=== PATIENT | male | born 1940 | race Caucasian/White ===

== ENCOUNTER → 2017-01-08 | Outpatient (CLI) | payer OTHER ==
[~2017-01-08] MED LIST: ADVIN25/60 INH; ALPR1TAB3 PO; CYAN3INJ IM; MULT-506 PO; NAPR1CAP12 PO
[2017-01-08 12:21] LABS: BASO % 0.5 %; BASO ABS # 0.03 K/uL (0-0.2); COMPLETE YES; EOS % 11.3 %; HEMATOCRIT 33.8 % (42-52); IG% 0.3 %; LYMPH % 18.4 %; LYMPH ABS # 1.12 K/uL (1.2-3.4); MEAN CELL VOLUME 89.2 fL (80-100); MEAN CORPUSCULAR HEMOGLOBIN 31.1 pg (25-34); MEAN CORPUSCULAR HGB CONC 34.9 g/dl (32-36); MEAN PLATELET VOLUME 9.7 fL (7.4-10.4); NEUT % 59.5 %; PLATELET COUNT 242 K/uL (130-400); RED BLOOD COUNT 3.79 M/uL (4.7-6.1); WHITE BLOOD COUNT 6.08 K/uL (4.8-10.8)
[2017-01-08 12:35] LABS: ALT/SGPT 23 U/L (12-78); AST/SGOT 23 U/L (15-37); BLOOD UREA NITROGEN 16 mg/dl (7-18); BUN/CREATININE RATIO 20.2 (10-20); CALCIUM 8.9 mg/dl (8.5-10.1); CARBON DIOXIDE 26 mmol/L (21-32); CHLORIDE 106 mmol/L (98-107); CREATININE 0.81 mg/dl (0.60-1.40); GLUCOSE 90 mg/dl (70-99); POTASSIUM 4.3 mmol/L (3.5-5.1); SODIUM 140 mmol/L (136-145)
[2017-01-08 12:36] LABS: ALB/GLOB RATIO 1.1 (0.9-2); ALKALINE PHOSPHATASE 65 U/L (45-117)
--- NOTE | 2017-01-10 09:19 | CODING QUERY NO DIAGNOSIS ---
TREATMENT RENDERED WITHOUT A DIAGNOSIS To promote full compliance with coding requirements relating to patient care, physician participation is requested in all cases of certified professional coder uncertainty. Please assist us with providing a diagnosis/symptom for the test(s) below: A diagnosis/symptom was not documented on your Order. A valid diagnosis/symptom is required to bill all insurances. Please remember that we are unable to code a diagnosis of rule out, probable, possible, questionable, or suspected. Tests that require a diagnosis: DOS: 01/08/17 * CEA DIAGNOSIS: * CBC DIAGNOSIS: * CMP DIAGNOSIS: * LDH DIAGNOSIS: Provider Signature: Date: Thank you Aminah Navas [facility] Information Management Once completed, please kindly fax back to [phone] For questions please call [phone]
== END | disposition home or self-care (01) ==
LOC: C.LABBFT 10:25
PROVIDERS: ATTEND Internal Medicine Hematology & Oncology
DX: C20 Malignant neoplasm of rectum (principal)

== ENCOUNTER → 2017-02-26 | Outpatient (CLI) | payer OTHER ==
[~2017-02-26] MED LIST changes: +ALPR-412 PO; +POLY335019 PO; +VITAMIN B 12 INJ INJ
[2017-02-26 13:28] LABS: THYROID STIMULATING HORMONE 5.39 uIu/ml (0.300-4.500)
== END | disposition home or self-care (01) ==
LOC: C.LABBFT 09:59
PROVIDERS: ATTEND Physician Assistant Medical
DX: E03.9 Hypothyroidism, unspecified (principal)

== ENCOUNTER → 2017-03-04 | Outpatient (CLI) | payer OTHER ==
--- NOTE | 2017-03-04 11:25 | DIAGNOSTIC IMAGING REPORT ---
LUMBAR SPINE 5 VIEWS CLINICAL HISTORY: Chronic low back pain. Peripheral neuropathy. FINDINGS: Five views of the lumbar spine are compared to study dated 01/03/2009. The skeletal structures are osteopenic. There is no radiographic evidence of fracture or malalignment. Vertebral body height and alignment are maintained throughout the lumbar spine. A chronic compression deformity of T11 is unchanged from 2009. There is minimal lumbar levocurvature centered at L3. There are anterior and lateral marginal osteophytes. The transverse and spinous processes appear intact. There is no evidence of spondylolysis. Advanced facet arthropathy is seen in the mid to lower lumbar region. There is advanced degenerative disc space narrowing at L4-L5 with associated endplate sclerosis. Moderate narrowing is seen at the remaining lumbar levels. Endplate sclerosis is also seen at L2-L3. The bony pelvis is intact as imaged. Mild sclerotic change is noted in the sacroiliac joints. There is atherosclerotic calcification of the abdominal aorta. A nonobstructed abdominal bowel gas pattern is observed. An ostomy projects over the left lower quadrant. IMPRESSION: 1. No acute bony abnormality is seen involving the lumbosacral spine. 2. Osteopenia with lumbosacral spondylosis and scoliosis as detailed above. Dictated: 03/04/2017 10:44 AM Transcribed: 03/04/2017 11:23 AM Bernarda Electronically signed by: Jorge Schultz M.D. 03/04/2017 11:28 AM Dictated Date/Time: 03/04/2017 10:44 AM
== END | disposition home or self-care (01) ==
LOC: C.RAD 09:30
PROVIDERS: ATTEND Physician Assistant Medical
DX: G62.9 Polyneuropathy, unspecified (principal)

== ENCOUNTER → 2017-04-09 | Outpatient (CLI) | payer OTHER ==
[2017-04-09 17:27] LABS: BASO % 0.6 %; BASO ABS # 0.04 K/uL (0-0.2); COMPLETE YES; EOS % 10.1 %; HEMATOCRIT 36.1 % (42-52); IG% 0.3 %; LYMPH % 14.6 %; LYMPH ABS # 0.94 K/uL (1.2-3.4); MEAN CORPUSCULAR HEMOGLOBIN 30.4 pg (25-34); MEAN CORPUSCULAR HGB CONC 32.7 g/dl (32-36); MEAN PLATELET VOLUME 9.6 fL (7.4-10.4); MONO % 6.7 %; NEUT % 67.7 %; PLATELET COUNT 245 K/uL (130-400); RED BLOOD COUNT 3.88 M/uL (4.7-6.1); WHITE BLOOD COUNT 6.42 K/uL (4.8-10.8)
[2017-04-09 17:50] LABS: ALB/GLOB RATIO 1.1 (0.9-2); ALKALINE PHOSPHATASE 59 U/L (45-117); ALT/SGPT 22 U/L (12-78); AST/SGOT 24 U/L (15-37); BLOOD UREA NITROGEN 16 mg/dl (7-18); BUN/CREATININE RATIO 19.7 (10-20); CALCIUM 8.7 mg/dl (8.5-10.1); CARBON DIOXIDE 30 mmol/L (21-32); CHLORIDE 105 mmol/L (98-107); CHOLESTEROL 198 mg/dl (0-200); CHOLESTEROL/HDL RATIO 2.7; CREATININE 0.82 mg/dl (0.60-1.40); GLUCOSE 85 mg/dl (70-99); HDL CHOLESTEROL 74 mg/dl; POTASSIUM 4.6 mmol/L (3.5-5.1); SODIUM 140 mmol/L (136-145)
[2017-04-09 17:52] LABS: LDL CHOLESTEROL CALCULATED 96 mg/dl; TRIGLYCERIDES 139 mg/dl (0-150); VERY LOW DENSITY LIPOPROT CALC 28 mg/dl
[2017-04-09 18:43] LABS: LYME DISEASE AB IGG NEG (NEG)
[2017-04-09 18:46] LABS: LYME DISEASE AB IGM EQUIVOCAL (NEG)
[2017-04-14 08:40] LABS: 18KDIGG BAND NONREACTIVE (NONREACTIVE); 23KDIGG BAND NONREACTIVE (NONREACTIVE); 23KDIGM BAND REACTIVE (NONREACTIVE); 28KDIGG BAND NONREACTIVE (NONREACTIVE); 30KDIGG BAND NONREACTIVE (NONREACTIVE); 39KDIGG BAND NONREACTIVE (NONREACTIVE); 39KDIGM BAND NONREACTIVE (NONREACTIVE); 41KDIGG BAND NONREACTIVE (NONREACTIVE); 41KDIGM BAND NONREACTIVE (NONREACTIVE); 45KDIGG BAND NONREACTIVE (NONREACTIVE); 58KDIGG BAND NONREACTIVE (NONREACTIVE); 66KDIGG BAND REACTIVE (NONREACTIVE); 93KDIGG BAND NONREACTIVE (NONREACTIVE)
== END | disposition home or self-care (01) ==
LOC: C.LABBFT 11:34
PROVIDERS: ATTEND Physician Assistant Medical
DX: E03.9 Hypothyroidism, unspecified (principal); R53.83 Other fatigue; I10 Essential (primary) hypertension

== ENCOUNTER → 2017-05-15 | Outpatient (CLI) | payer OTHER ==
[~2017-05-15] MED LIST changes: -ALPR-412 PO; -POLY335019 PO; -VITAMIN B 12 INJ INJ
[2017-05-15 17:31] LABS: THYROID STIMULATING HORMONE 2.6 uIu/ml (0.300-4.500)
== END | disposition home or self-care (01) ==
LOC: C.LABBFT 14:34
PROVIDERS: ATTEND Internal Medicine
DX: E03.9 Hypothyroidism, unspecified (principal)

== ENCOUNTER → 2017-06-30 | Outpatient (CLI) | payer OTHER ==
[~2017-06-30] MED LIST changes: +OPTIRAY 320 IV PRN
--- NOTE | 2017-06-30 15:35 | DIAGNOSTIC IMAGING REPORT ---
CHEST, ABDOMEN AND PELVIS CT WITH IV AND ORAL CONTRAST CT DOSE: 592.78 mGy.cm HISTORY: Rectal cancer. TECHNIQUE: Multiaxial CT images of the chest, abdomen and pelvis were performed following the use of intravenous and oral contrast. A dose lowering technique was utilized adhering to the principles of ALARA. COMPARISON STUDY: Chest abdomen and pelvis CT 09/01/2016. FINDINGS: No change in the bilateral calcified pleural plaques with a few scattered subcentimeter calcified and noncalcified pulmonary nodules. These nodules measure up to 4 mm. Subcentimeter mediastinal and bilateral hilar lymph nodes also remain stable. No pleural or pericardial effusions. No suspicious lytic or blastic osseous lesions. Stable old compression deformities within the thoracic spine. The liver, spleen, pancreas, kidneys, and right gland are unremarkable. Stable 1.8 cm left adrenal gland nodule. No retroperitoneal lymphadenopathy. Moderate calcified plaque within the normal caliber abdominal aorta. No pelvic lymphadenopathy. Colonic diverticulosis. Normal appendix. No bowel wall thickening or obstruction. No suspicious lytic or blastic osseous lesions. Left lower quadrant colostomy is again noted. Stable mild presacral soft tissue thickening. IMPRESSION: Overall, no significant change compared to the prior study. No evidence for metastatic disease within the chest, abdomen, or pelvis. Additional findings as described above. Electronically signed by: Rai Gamez M.D. 06/30/2017 3:33 PM Dictated Date/Time: 06/30/2017 3:20 PM
== END | disposition home or self-care (01) ==
LOC: C.CTS 14:26
PROVIDERS: ATTEND Internal Medicine Hematology & Oncology
DX: Z85.048 Personal history of other malignant neoplasm of rectum, rectosigmoid junction, and anus (principal)

== ENCOUNTER → 2017-08-27 | Outpatient (CLI) | payer OTHER ==
[~2017-08-27] MED LIST changes: -OPTIRAY 320 IV PRN
--- NOTE | 2017-08-27 10:41 | DIAGNOSTIC IMAGING REPORT ---
LUMBAR SPINE MRI HISTORY: Low back pain. TECHNIQUE: Multiplanar multisequence MRI of the lumbar spine was performed without the use of contrast. COMPARISON: Lumbar spine radiograph 225 and 9. FINDINGS: For the purpose of the report the L5-S1 disc space will be located on axial image 23 of 25. Alignment and curvature intact. No fractures within the lumbar spine. Endplate edema at L2-L3 is likely due to the long-standing degenerative change. The conus terminates at the L1 level. Old, healed mild to moderate anterior wedge-shaped compression deformity at T11. This remains unchanged. Mild disc space narrowing at L1-L2. Moderate disc space narrowing at L2-L3. Moderate to severe disc space narrowing at L3-L4. There is severe disc space narrowing at L4-L5. Small endplate osteophytes seen throughout the lumbar spine. This seen on the sagittal STIR sequences there is abnormal linear hyperintense signal within the bilateral sacral wings consistent with insufficiency fractures. There is associated presacral edema due to the insufficient fractures. These are not significantly displaced. Near diffuse atrophy of the erector spinae muscles. Visualized retroperitoneal soft tissues are unremarkable. L1-L2: Small broad-based posterior disc bulge without significant central canal or neural foraminal narrowing. L2-L3: Small broad-based posterior disc bulge with ligamentum and facet hypertrophy resulting in moderate central canal and mild bilateral neural foraminal narrowing. L3-L4: No significant central canal narrowing. Mild bilateral neural foraminal narrowing, right greater than left. This is due to the small disc bulge asymmetric to the right. L4-L5: Mild central canal narrowing due to the tiny disc bulge and facet hypertrophy. There is also mild bilateral neural foraminal narrowing. L5-S1: No significant central canal or neural foraminal narrowing. IMPRESSION: 1. Bilateral sacral sufficiency fractures which appear acute to subacute. 2. No acute fractures identified within the lumbar spine. 3. Old, healed T11 wedge-shaped compression deformity. No associated retropulsion. 4. Multilevel lumbar spondylosis as described above most pronounced at the L2-L3 level which demonstrates moderate central canal narrowing. Electronically signed by: Rai Gamez M.D. 08/27/2017 10:40 AM Dictated Date/Time: 08/27/2017 10:30 AM
== END | disposition home or self-care (01) ==
LOC: C.MRI 09:26
PROVIDERS: ATTEND Orthopaedic Surgery Orthopaedic Surgery of the Spine
DX: M48.061 Spinal stenosis, lumbar region without neurogenic claudication (principal); M47.816 Spondylosis without myelopathy or radiculopathy, lumbar region; S32.10XA Unspecified fracture of sacrum, initial encounter for closed fracture; X58.XXXA Exposure to other specified factors, initial encounter

== ENCOUNTER 2017-10-26 10:37 | Observation (INO) | payer OTHER ==
[2017-09-24 08:56] VITALS: BMI 24.0
--- NOTE | 2017-09-24 09:41 | PAT Medication Instructions ---
Service Date Sep 24, 2017. Current Home Medication List Alprazolam (Alprazolam), 1 TAB PO HS PRN for Sleep Fluticasone Prop/Salmeterol (Advair Diskus 250/50 60 Dose), 1 PUFF INH QAM Multivitamin (Multivitamin), 1 TAB PO QAM Naproxen Sodium (Aleve), 1 CAP PO DAILY PRN for Pain Polyethylene Glycol 3350 (Miralax), 17 GM PO PRN [Vitamin B 12 Inj], 1 DOSE INJ [id number] Medication Instructions For Your Scheduled Surgery - Check with surgeon for instructions: Naproxen Sodium (Aleve), 1 CAP PO DAILY PRN for Pain - Continue as directed: [Vitamin B 12 Inj], 1 DOSE INJ [id number] - Hold the following medications the morning of surgery: Polyethylene Glycol 3350 (Miralax), 17 GM PO PRN Multivitamin (Multivitamin), 1 TAB PO QAM - Take the following medications the morning of surgery with a sip of water: Alprazolam (Alprazolam), 1 TAB PO HS PRN for Sleep (if needed) Fluticasone Prop/Salmeterol (Advair Diskus 250/50 60 Dose), 1 PUFF INH QAM - Take the following medications as scheduled the night before surgery: Alprazolam (Alprazolam), 1 TAB PO HS PRN for Sleep (if needed) Fluticasone Prop/Salmeterol (Advair Diskus 250/50 60 Dose), 1 PUFF INH QAM Multivitamin (Multivitamin), 1 TAB PO QAM Polyethylene Glycol 3350 (Miralax), 17 GM PO PRN(if needed) If you have any questions please call us at [phone] or [phone] or [phone]
[2017-09-24 10:37] LABS: BASO % 0.6 %; BASO ABS # 0.04 K/uL (0-0.2); EOS % 11.8 %; EOS ABS # 0.76 K/uL (0-0.5); HEMATOCRIT 38.2 % (42-52); HEMOGLOBIN 12.9 g/dL (14.0-18.0); IG# 0.02 K/uL (0.00-0.02); LYMPH % 16.5 %; LYMPH ABS # 1.06 K/uL (1.2-3.4); MEAN CELL VOLUME 92.3 fL (80-100); MEAN CORPUSCULAR HEMOGLOBIN 31.2 pg (25-34); MEAN CORPUSCULAR HGB CONC 33.8 g/dl (32-36); MEAN PLATELET VOLUME 9.4 fL (7.4-10.4); MONO % 9.8 %; MONO ABS # 0.63 K/uL (0.11-0.59); NEUT ABS # 3.93 K/uL (1.4-6.5); PLATELET COUNT 222 K/uL (130-400); RED CELL DISTRIBUTION WIDTH CV 13.9 % (11.5-14.5); WHITE BLOOD COUNT 6.44 K/uL (4.8-10.8)
[2017-09-24 10:43] LABS: CALCIUM 8.8 mg/dl (8.5-10.1); CREATININE 0.93 mg/dl (0.60-1.40); POTASSIUM 4.3 mmol/L (3.5-5.1)
[2017-09-24 10:50] LABS: INR 0.9 (0.9-1.1); PTT PATIENT 27.2 SECONDS (21.0-31.0)
--- NOTE | 2017-10-25 11:09 | HISTORY & PHYSICAL EXAMINATION ---
DATE OF ADMISSION: 10/26/2017 Preop for laminectomy, L2-L3, L3-L4, and L4-L5 lumbar spine. Symptoms include back pain, lower extremity difficulty, paresthesias, walking intolerance with significant imaging. Bill is delightful. I have known him for several months. He is set up for an elective surgery at [facility] on the , laminectomy of the various levels listed. PAST MEDICAL HISTORY: Negative for heart disease, congenital heart disorder. Positive stress test. Positive for asthma, numbness and tingling. Negative for diabetes. Negative for thyroid. Negative for bleeding disorder. Negative for kidney and liver disease. Does have a history of skin, face, back and rectal carcinoma, has had chemotherapy, has had radiation, does have some nausea. PAST SURGICAL HISTORY: Include skin cancer surgery and a colostomy. MEDICATIONS: Include Advair, vitamin B12, multivitamin, thyroid medication and MiraLax. REVIEW OF SYSTEMS: Denies blurred vision, double vision, tinnitus, vertigo. Denies chest pain, palpitations. Denies asthma, wheezing, shortness of breath. No nausea and vomiting. Does have a colostomy. PHYSICAL EXAMINATION: GENERAL: He is alert and oriented. He is 5 feet 8 inches, 160 pounds. He is in no terrible distress, sitting. He has difficulty with ambulation. VITAL SIGNS: Blood pressure 130/80, pulse of 80, respiratory rate 16, temperature 97.4. CARDIAC: Normal S1, S2, no S3. LUNGS: Clear to auscultation. No wheezing or rhonchi. EXTREMITIES: Major problems lower extremity difficulty with neurogenic claudication. IMAGES: Reviewed. IMPRESSION: Spinal stenosis, L2-L5. DISPOSITION: Laminectomy, L2-L3, L3-L4, L4-L5.
[2017-10-26] VITALS (8 sets, daily range): BP systolic 122–155; BP diastolic 65–87; PULSE 64–89; TEMP 36.4–36.7; O2SAT 94–99; Ht 172.7 cm; Wt 73.5 kg
[~2017-10-26] VITALS: Ht 172.7 cm; Wt 73.5 kg
[~2017-10-26 10:37] MED LIST changes: +ALPR-412 PO; -ALPR1TAB3 PO; +CEFAZOLIN 2000MG IV PUSH 10 ML IV SCH; -CYAN3INJ IM; +LACTATED RINGER'S 1000ML 1,000 ML IV SCH; +NSS 1000ML IV SCH; +POLY335019 PO; +VITAMIN B 12 INJ INJ
[2017-10-26] MEDS ORDERED: THROMBIN FOR SOLN 20000 UNIT KIT ONE (13:20)
[2017-10-26] MEDS ORDERED: GELATIN SPONGE SZ 100 ONE ×2 (13:20→14:55)
[2017-10-26] MEDS ORDERED: VANCOMYCIN HCL 1000MG/20ML VIAL ONE (13:21)
[2017-10-26] MEDS ORDERED: MIDAZOLAM HCL 1 MG/ML 2ML VIAL ONE (13:21)
[2017-10-26] MEDS ORDERED: FENTANYL CITRATE INJ 50 MCG/1 ML 2 ML VIAL ONE ×2 (13:21→15:19)
[2017-10-26] MEDS ORDERED: BACITRACIN 50000 UNIT VIAL ONE (13:21)
[2017-10-26] MEDS ORDERED: BUPIVACAINE/EPINEPHRINE 0.5% MPF 1:200,000 30 ML VIAL ONE (13:21)
--- NOTE | 2017-10-26 13:23 | History & Physical Bridge Note ---
H&P Re-Evaluation Bridge Note: I have examined the patient, reviewed the History & Physical and in the interval since the performance of the History & Physical I have noted the following changes of clinical significance: No changes noted PROCEDURE; LAMINECTOMY L2-3, L3-4, L4-5
[2017-10-26] MEDS ORDERED: PHENYLEPHRINE HCL INJ 10 MG/ML VIAL ONE (13:25)
[2017-10-26] MEDS ORDERED: THROMBIN FOR SOLN 20000 UNIT KIT TOP ONE (15:19)
[2017-10-26] MEDS ORDERED: LORAZEPAM INJ 1 MG in SYRINGE 0 ML IV PRN (15:30)
[2017-10-26] MEDS ORDERED: NON-FORMULARY MEDICATION (Polyethylene Glycol 3350 (Miralax) 17 GM) PO SCH (15:30)
[2017-10-26] MEDS ORDERED: ACETAMINOPHEN 325 MG TAB PO PRN (15:30)
[2017-10-26] MEDS ORDERED: HYDROmorphone INJ 2 MG/ML SYR/VIAL IV PRN (15:30)
[2017-10-26] MEDS ORDERED: METOCLOPRAMIDE HCL INJ 5 MG/ML 2 ML VIAL IV PRN (15:30)
[2017-10-26] MEDS ORDERED: ONDANSETRON INJ 2 MG/ML 2 ML VIAL IV PRN ×2 (15:30→15:45)
[2017-10-26] MEDS ORDERED: PROMETHAZINE HCL INJ 12.5 MG in SODIUM CHLORIDE 0.9% 50ML 50 ML IV PRN ×2 (15:30→15:45)
[2017-10-26] MEDS ORDERED: HYDROmorphone INJ 1 MG/ML SYR IV PRN ×2 (15:30→15:45)
[2017-10-26] MEDS ORDERED: VITAMIN B INJ SCH (15:30)
[2017-10-26] MEDS ORDERED: LORAZEPAM 1 MG TAB PO PRN (15:30)
[2017-10-26] MEDS ORDERED: ALPRAZOLAM 0.25 MG TAB PO PRN (15:30)
[2017-10-26] MEDS ORDERED: OXYCODONE/ACETAMINOPHEN 5-325 TAB PO PRN ×2 (15:30)
--- NOTE | 2017-10-26 15:31 | [facility] Post Operative Brief Note ---
Immediate Operative Summary Operative Date Oct 26, 2017. Pre-Operative Diagnosis Spinal Stenosis L2-L5 Post-Operative Diagnosis Spinal Stenosis L2-L5 Procedure(s) Performed L2-L3, L3-L4, L4-L5 Laminectomy Surgeon Dr. Mujica [employer]ater Surgeon(s) Jose Oliveros PA-C Estimated Blood Loss 300CC Findings severe stenosis Specimens none per surgeon Complication(s) None Disposition Recovery Room / PACU
[2017-10-26] MEDS ORDERED: ONDANSETRON INJ 2 MG/ML 2 ML VIAL ONE (15:45)
[2017-10-26] MEDS ORDERED: ROCURONIUM BROMIDE 10 MG/ML 5 ML VIAL IV ONE (15:45)
[2017-10-26] MEDS ORDERED: FLUMAZENIL 0.1 MG/1 ML 10 ML VIAL IV PRN (15:45)
[2017-10-26] MEDS ORDERED: ATROPINE SULFATE 0.1 MG/ML 5ML SYR IV PRN (15:45)
[2017-10-26] MEDS ORDERED: GLYCOPYRROLATE INJ 0.2 MG/ML VIAL ONE (15:45)
[2017-10-26] MEDS ORDERED: NEOSTIGMINE METHYLSULFATE 5 MG/5 ML SYR ONE (15:45)
[2017-10-26] MEDS ORDERED: DEXAMETHASONE SOD INJ 4 MG/ML VIAL ONE (15:45)
[2017-10-26] MEDS ORDERED: PROPOFOL IV EMULSION 10 MG/ML 20 ML VIAL IV ONE (15:45)
[2017-10-26] MEDS ORDERED: LIDOCAINE HCL 2% 2 ML VIAL (20MG/ML) ONE (15:45)
[2017-10-26] MEDS ORDERED: NALOXONE HCL 0.4 MG/1 ML VIAL/CARP IV PRN (15:45)
[2017-10-26] MEDS ORDERED: LABETALOL HCL IV 5 MG/ML 20ML IV PRN (15:45)
--- NOTE | 2017-10-26 15:49 | DIAGNOSTIC IMAGING REPORT ---
INTRAOPERATIVE LUMBAR SPINE SINGLE VIEW CLINICAL HISTORY: L2-L3 L3-L4 L4-L5 LAMINECTOMY COMPARISON STUDY: Lumbar spine performed 03/04/2017 FINDINGS: A single lateral fluoroscopic spot images provided for interpretation. 2 seconds of fluoroscopic time was utilized. There are posterior skin retractors. There are metallic probes present at the level posterior elements at the L5-S1 level, and L2-3 level. IMPRESSION: Intraoperative fluoroscopic spot image for localization purposes. Electronically signed by: Benson Chavarria M.D. 10/26/2017 3:48 PM Dictated Date/Time: 10/26/2017 3:47 PM
[2017-10-26] MEDS ORDERED: IV FLUIDS COMPLETED PRN (16:00)
--- NOTE | 2017-10-26 16:29 | Anesthesiology Progress Note ---
Anesthesia Post Op Note Date & Time Oct 26, 2017 at 16:29 Vital Signs Pain Intensity: 2 Vital Signs Past 12 Hours Date Time Temp Pulse Resp B/P (MAP) Pulse Ox O2 Delivery O2 Flow Rate FiO2 10/26/17 16:21 124/63 10/26/17 16:18 68 15 97 10/26/17 16:18 67 15 10/26/17 16:16 131/65 10/26/17 16:13 74 12 10/26/17 16:13 72 12 97 10/26/17 16:11 148/74 10/26/17 16:08 84 14 97 10/26/17 16:08 84 14 10/26/17 16:06 144/73 10/26/17 16:05 36.3 83 16 144/73 (115) 97 Nasal Cannula 2 10/26/17 16:03 80 14 10/26/17 16:03 81 14 98 10/26/17 16:01 161/81 10/26/17 15:58 85 16 10/26/17 15:58 85 16 98 10/26/17 15:57 87 16 97 10/26/17 15:57 87 16 10/26/17 15:56 156/90 10/26/17 15:52 85 13 10/26/17 15:52 85 13 99 10/26/17 15:51 160/71 10/26/17 15:47 86 19 99 10/26/17 15:47 86 19 10/26/17 15:46 156/78 10/26/17 15:42 89 18 100 10/26/17 15:42 89 18 10/26/17 15:41 141/69 10/26/17 15:38 149/72 10/26/17 15:37 36.7 87 12 149/72 (104) 99 Oxymask 10 10/26/17 15:37 89 9 10/26/17 15:37 88 9 99 10/26/17 11:12 36.7 76 20 143/76 (98) 94 Room Air Notes Mental Status: alert / awake / arousable, participated in evaluation Pt Amnestic to Procedure: Yes Nausea / Vomiting: adequately controlled Pain: adequately controlled Airway Patency, RR, SpO2: stable & adequate BP & HR: stable & adequate Hydration State: stable & adequate Anesthetic Complications: no major complications apparent
[2017-10-26] MEDS ORDERED: SODIUM CHLORIDE 0.9% 1000ML 1,000 ML IV SCH (17:00)
[2017-10-26 17:06] LABS: HEMATOCRIT 30.4 % (42-52); HEMOGLOBIN 10.7 g/dL (14.0-18.0)
--- NOTE | 2017-10-26 18:03 | OPERATIVE REPORT ---
DATE OF OPERATION: 10/26/2017 PREOPERATIVE DIAGNOSIS: Severe stenosis, L2 through L5, lumbar spine. POSTOPERATIVE DIAGNOSIS: Same. PROCEDURE: Laminectomy, foraminotomy, partial facetectomy, L2 through L5. ESTIMATED BLOOD LOSS: 200 mL. COMPLICATIONS: Zero. SURGEON: Dr. Muijca. BENDING ROLL OPERATOR: Jose Oliveros PA-C. ANESTHETIC: General. DESCRIPTION OF PROCEDURE: The patient was taken to the operating room and general intubated, anesthesia provided to the patient, placed prone, prepped and draped sterile. We made a skin incision, fascial incision, put in a deep self-retaining retractor, meticulously decompressed lamina of L5, L4, L3, L2; foraminotomies, partial facetectomy, a lot decompression with ligamentum flavum hypertrophy. We probed and visualized each and every nerve root, they were free of obstruction. We irrigated and closed over vancomycin powder and Hemovac drain with 1 Vicryl suture, 2-0 on the subcuticular layer, staple gun on the skin. Sterile dressing applied. The patient returned to PACU stable. Again, no apparent complications. Sponge and needle count correct at the close. I attest to the content of the Intraoperative Record and any orders documented therein. Any exception s are noted below.
--- NOTE | 2017-10-26 19:12 | Medical Consult ---
Consultation Date of Consultation: Oct 26, 2017. Attending Physician: Nael Mujica DO Reason for Consultation: medical management History of Present Illness 77 y/o M who was admitted earlier today s/p spine surgery with Dr. Mujica. Pt is doing well. No back pain at present. He has not eaten yet, but no n/v post op. Denies chest pain or SOB. Pt denies fever, abd pain, c/d, LE pain or swelling. Past Medical/Surgical History Asthma Hypothyroid--not taking medications Family History Noncontributory due to age Denies hx of CT Social History Smoking Status: Former Smoker Alcohol Use: none Drug Use: none Marital Status: Housing Status: lives with family Allergies Coded Allergies: Brompheniramine (Verified Allergy, Unknown, UNKNOWN REACTION, 10/26/17) PER PCP RECORDS Hydrochlorothiazide w/Triamterene (Verified Allergy, Unknown, UNKNOWN REACTION, 10/26/17) PER PCP RECORDS Lisinopril (Verified Allergy, Unknown, UNKNOWN REACTION, 10/26/17) PER PCP RECORDS Olmesartan (Verified Allergy, Unknown, UNKNOWN REACTION, 10/26/17) PER PCP RECORDS Pseudoephedrine (Verified Allergy, Unknown, UNKNOWN REACTION, 10/26/17) PER PCP RECORDS Telmisartan (Verified Allergy, Unknown, UNKNOWN REACTION, 10/26/17) PER PCP RECORDS Current Inpatient Medications Current Inpatient Medications Medications (Trade) Dose Ordered Sig/Mariely Route Start Time Stop Time Status Last Admin Dose Admin Acetaminophen (Tylenol Tab) 650 mg Q6H PRN PO 10/26/17 15:30 11/25/17 15:29 Hydromorphone HCl (Dilaudid Inj) 1 mg Q3H PRN IV 10/26/17 15:30 11/09/17 15:29 Hydromorphone HCl (Dilaudid Inj) 1.5 mg Q3H PRN IV 10/26/17 15:30 11/09/17 15:29 Promethazine HCl 12.5 mg/Sodium Chloride 50.5 ml @ 202 mls/hr Q6H PRN IV 10/26/17 15:30 11/25/17 15:29 Ondansetron HCl (Zofran Inj) 4 mg Q6H PRN IV 10/26/17 15:30 11/25/17 15:29 Metoclopramide HCl (Reglan Inj) 10 mg Q6H PRN IV 10/26/17 15:30 11/25/17 15:29 Lorazepam (Ativan Tab) 1 mg Q6H PRN PO 10/26/17 15:30 11/25/17 15:29 Lorazepam 1 mg/ Syringe 0.5 ml @ 1 mls/min Q6H PRN IV 10/26/17 15:30 11/25/17 15:29 Polyethylene (Miralax Powder Packet) 17 gm DAILY PO 10/27/17 09:00 11/26/17 08:59 Bisacodyl (Dulcolax Tab) 5 mg DAILY PRN PO 10/27/17 06:00 11/26/17 05:59 Diphenhydramine HCl (Benadryl Cap) 25 mg Q6H PRN PO 10/26/17 15:30 11/25/17 15:29 Oxycodone/ Acetaminophen (Percocet 5-325mg Tab) 1 tab Q4H PRN PO 10/26/17 15:30 11/09/17 15:29 Oxycodone/ Acetaminophen (Percocet 5-325mg Tab) 2 tab Q4H PRN PO 10/26/17 15:30 11/09/17 15:29 Dexamethasone Sodium Phosphate 10 mg/Syringe 2.5 ml @ 1 mls/min Q8H IV 10/26/17 22:00 10/28/17 06:03 Sodium Chloride 1,000 ml @ 80 mls/hr [id number] IV 10/26/17 17:00 11/25/17 16:59 Alprazolam (Xanax Tab) 0.25 mg HS PRN PO 10/26/17 15:30 11/25/17 15:29 Salmeterol Xinafoate/ Fluticasone (Advair Diskus 250/50 Inh) 1 puff QAM INH 10/27/17 09:00 11/26/17 08:59 Multivitamins (Multivitamin Tab) 1 tab QAM PO 10/27/17 09:00 11/26/17 08:59 Hydromorphone HCl (Dilaudid Inj) 0.25 mg Q5M PRN IV 10/26/17 15:45 10/26/17 20:45 Naloxone HCl (Narcan Inj) 0.2 mg Q2M PRN IV 10/26/17 15:45 10/26/17 20:45 Flumazenil (Romazicon Inj) 0.2 mg Q2M PRN IV 10/26/17 15:45 10/26/17 20:45 Ondansetron HCl (Zofran Inj) 4 mg ONE PRN IV 10/26/17 15:45 10/26/17 20:45 Promethazine HCl 12.5 mg/Sodium Chloride 50.5 ml @ 202 mls/hr ONE PRN IV 10/26/17 15:45 10/26/17 20:45 Labetalol HCl (Normodyne IV) 5 mg Q5M PRN IV 10/26/17 15:45 10/26/17 20:45 Atropine Sulfate (Atropine Sulfate 0.1MG/Ml Inj) 0.5 mg Q1M PRN IV 10/26/17 15:45 10/26/17 20:45 Miscellaneous (Iv Fluids Completed) 1 ea PRN PRN N/A 10/26/17 16:00 10/26/18 15:59 Review of Systems Pertinent positives and negatives reviewed in HPI--all others negative Physical Exam Date Time Temp Pulse Resp B/P (MAP) Pulse Ox O2 Delivery O2 Flow Rate FiO2 10/26/17 18:32 82 16 147/80 (102) 98 Nasal Cannula 2.0 10/26/17 17:30 89 16 155/87 (109) 97 Nasal Cannula 2.0 10/26/17 16:30 96 Nasal Cannula 2.0 10/26/17 16:30 96 Nasal Cannula 2.0 10/26/17 16:21 124/63 10/26/17 16:18 68 15 97 10/26/17 16:18 67 15 10/26/17 16:16 131/65 10/26/17 16:13 74 12 10/26/17 16:13 72 12 97 10/26/17 16:11 148/74 10/26/17 16:08 84 14 97 10/26/17 16:08 84 14 10/26/17 16:06 144/73 10/26/17 16:05 36.3 83 16 144/73 (115) 97 Nasal Cannula 2 10/26/17 16:03 80 14 10/26/17 16:03 81 14 98 10/26/17 16:01 161/81 10/26/17 15:58 85 16 10/26/17 15:58 85 16 98 10/26/17 15:57 87 16 97 10/26/17 15:57 87 16 10/26/17 15:56 156/90 10/26/17 15:52 85 13 10/26/17 15:52 85 13 99 10/26/17 15:51 160/71 10/26/17 15:47 86 19 99 10/26/17 15:47 86 19 10/26/17 15:46 156/78 10/26/17 15:42 89 18 100 10/26/17 15:42 89 18 10/26/17 15:41 141/69 10/26/17 15:38 149/72 10/26/17 15:37 36.7 87 12 149/72 (104) 99 Oxymask 10 10/26/17 15:37 89 9 10/26/17 15:37 88 9 99 10/26/17 11:12 36.7 76 20 143/76 (98) 94 Room Air General Appearance: WD/WN, no apparent distress Head: normocephalic, atraumatic Eyes: normal inspection, EOMI, sclerae normal Respiratory/Chest: normal breath sounds, no respiratory distress Cardiovascular: regular rate, rhythm, no edema Abdomen/GI: non tender, soft Extremities/Musculoskelatal: no calf tenderness, no pedal edema Neurologic/Psych: alert, normal mood/affect, oriented x 3 Skin: normal color, warm/dry Laboratory Results Last 24 Hours Test 10/26/17 16:52 Hemoglobin 10.7 g/dL Hematocrit 30.4 % Assessment & Plan 77 y/o M who was admitted on 10/26 s/p spine surgery with Dr. Mujica. Spine surgery: as per ortho Asthma: stable Hypothyroid: pt reports that he did not feel any different on medication and his PCP told him he could stop taking it TSH 2.6 05/2017, repeat pending
[2017-10-26] MEDS: DEXAMETHASONE INJ 10 MG in SYRINGE 0 ML IV SCH (21:47)
[2017-10-27 03:35] VITALS: BP 131/70; PULSE 90; TEMP 36.9; O2SAT 94
[2017-10-27] MEDS ORDERED: NURSING DECISION MEDICATION ORDER SCH (05:15)
[2017-10-27] MEDS: DEXAMETHASONE INJ 10 MG in SYRINGE 0 ML IV SCH ×3 (05:45→22:19)
[2017-10-27] MEDS ORDERED: BISACODYL 5 MG TABEC PO PRN (06:00)
[2017-10-27 07:05] VITALS: BP 127/63; PULSE 89; TEMP 36.6; O2SAT 93
[2017-10-27 07:29] VITALS: BP 125/63; PULSE 74; O2SAT 95
--- NOTE | 2017-10-27 07:39 | Anesthesiology Progress Note ---
Anesthesia Post Op Note Date & Time Oct 27, 2017 at 07:39 Vital Signs Pain Intensity: 1.0 Vital Signs Past 12 Hours Date Time Temp Pulse Resp B/P (MAP) Pulse Ox O2 Delivery O2 Flow Rate FiO2 10/27/17 07:29 74 16 125/63 (83) 95 Nasal Cannula 2.0 10/27/17 07:05 36.6 89 16 127/63 (84) 93 Room Air 10/27/17 03:35 36.9 90 16 131/70 (90) 94 Room Air 10/26/17 23:21 96 Room Air 10/26/17 23:20 Nasal Cannula 2.0 10/26/17 23:00 36.5 86 16 124/65 (84) 99 Nasal Cannula 2.0 10/26/17 20:10 64 122/65 (84) Notes Mental Status: alert / awake / arousable, participated in evaluation Pt Amnestic to Procedure: Yes Nausea / Vomiting: adequately controlled Pain: adequately controlled Airway Patency, RR, SpO2: stable & adequate BP & HR: stable & adequate Hydration State: stable & adequate Anesthetic Complications: no major complications apparent
--- NOTE | 2017-10-27 07:57 | ORTHOPEDICS PROGRESS NOTE ---
DATE: 10/27/2017 SUBJECTIVE: Now 12 hours from fairly rigorous spinal surgery. He is alert, oriented but lightheaded this morning. Out of bed to the bathroom. He is conversant. No chest pain, shortness of breath, calf tenderness. OBJECTIVE: Vital signs were stable, blood pressure appropriate, 30.4 hematocrit this morning. ASSESSMENT: Delightful gentleman with some lightheadedness this morning, probably down on his fluids, possibly anemic as well causing an assortment of issues. DISPOSITION: Will put him back to bedrest this morning. Restart his IV fluids and check his laboratory values. He does have a hospitalist onboard.
[2017-10-27] MEDS: LACTATED RINGER'S 1000ML 1,000 ML IV SCH ×2 (08:02→18:06)
[2017-10-27] MEDS: MULTIVITAMIN TAB PO SCH (08:03)
[2017-10-27] MEDS: FLUTICASONE/SALMETEROL 250/50 (ADVAIR) 14 PUFF/1 INHALER INH SCH (08:03)
[2017-10-27] MEDS: POLYETHYLENE (MIRALAX) 17 GM PACK PO SCH (08:03)
[2017-10-27 08:16] LABS: HEMATOCRIT 29.4 % (42-52); HEMOGLOBIN 10.1 g/dL (14.0-18.0); MEAN CELL VOLUME 91.3 fL (80-100); MEAN CORPUSCULAR HEMOGLOBIN 31.4 pg (25-34); MEAN CORPUSCULAR HGB CONC 34.4 g/dl (32-36); MEAN PLATELET VOLUME 9.3 fL (7.4-10.4); PLATELET COUNT 191 K/uL (130-400); RED CELL DISTRIBUTION WIDTH CV 13.9 % (11.5-14.5); RED CELL DISTRIBUTION WIDTH SD 46.7 fL (36.4-46.3); WHITE BLOOD COUNT 9.68 K/uL (4.8-10.8)
[2017-10-27 11:41] VITALS: BP 138/66; PULSE 84; TEMP 36.5; O2SAT 97
[2017-10-27 15:35] VITALS: BP 132/62; PULSE 72; TEMP 36.4; O2SAT 94
--- NOTE | 2017-10-27 15:38 | Progress Note ---
Subjective Date of Service: Oct 27, 2017. Objective Vital Signs Date Time Temp Pulse Resp B/P (MAP) Pulse Ox O2 Delivery O2 Flow Rate FiO2 10/27/17 11:41 36.5 84 16 138/66 (90) 97 Room Air 10/27/17 07:53 Nasal Cannula 2.0 10/27/17 07:29 74 16 125/63 (83) 95 Nasal Cannula 2.0 10/27/17 07:05 36.6 89 16 127/63 (84) 93 Room Air 10/27/17 03:35 36.9 90 16 131/70 (90) 94 Room Air 10/26/17 23:21 96 Room Air 10/26/17 23:20 Nasal Cannula 2.0 10/26/17 23:00 36.5 86 16 124/65 (84) 99 Nasal Cannula 2.0 10/26/17 20:10 64 122/65 (84) 10/26/17 19:33 36.4 85 16 151/80 (103) 98 Nasal Cannula 2.0 10/26/17 18:32 82 16 147/80 (102) 98 Nasal Cannula 2.0 10/26/17 17:30 89 16 155/87 (109) 97 Nasal Cannula 2.0 10/26/17 16:30 96 Nasal Cannula 2.0 10/26/17 16:30 96 Nasal Cannula 2.0 10/26/17 16:21 124/63 10/26/17 16:18 68 15 97 10/26/17 16:18 67 15 10/26/17 16:16 131/65 10/26/17 16:13 74 12 10/26/17 16:13 72 12 97 10/26/17 16:11 148/74 10/26/17 16:08 84 14 97 10/26/17 16:08 84 14 10/26/17 16:06 144/73 10/26/17 16:05 36.3 83 16 144/73 (115) 97 Nasal Cannula 2 10/26/17 16:03 80 14 10/26/17 16:03 81 14 98 10/26/17 16:01 161/81 10/26/17 15:58 85 16 10/26/17 15:58 85 16 98 10/26/17 15:57 87 16 97 10/26/17 15:57 87 16 10/26/17 15:56 156/90 10/26/17 15:52 85 13 10/26/17 15:52 85 13 99 10/26/17 15:51 160/71 10/26/17 15:47 86 19 99 10/26/17 15:47 86 19 10/26/17 15:46 156/78 10/26/17 15:42 89 18 100 10/26/17 15:42 89 18 10/26/17 15:41 141/69 10/26/17 15:38 149/72 10/26/17 15:37 36.7 87 12 149/72 (104) 99 Oxymask 10 10/26/17 15:37 89 9 10/26/17 15:37 88 9 99 Laboratory Results Last 24 Hours Test 10/26/17 16:52 10/27/17 07:41 Hemoglobin 10.7 g/dL 10.1 g/dL Hematocrit 30.4 % 29.4 % White Blood Count 9.68 K/uL Red Blood Count 3.22 M/uL Mean Corpuscular Volume 91.3 fL Mean Corpuscular Hemoglobin 31.4 pg Mean Corpuscular Hemoglobin Concent 34.4 g/dl RDW Standard Deviation 46.7 fL RDW Coefficient of Variation 13.9 % Platelet Count 191 K/uL Mean Platelet Volume 9.3 fL Thyroid Stimulating Hormone (TSH) 2.300 uIu/ml Assessment and Plan 77 y/o M who was admitted on 10/26 s/p spine surgery with Dr. Mujica. S/P L2-5 laminectomy, foraminotomy Hemodynamically stable Dizziness resolved with IVF No distress reported Dispo, DVT ppx per primary team Asthma: stable, cont advair, IS Hypothyroid: pt reports that he did not feel any different on medication and his PCP told him he could stop taking it TSH 2.3 Pt is FULL CODE
[2017-10-27 22:49] VITALS: BP 133/68; PULSE 82; TEMP 37.1; O2SAT 93
[2017-10-28] MEDS: LACTATED RINGER'S 1000ML 1,000 ML IV SCH (04:03)
[2017-10-28] MEDS: DEXAMETHASONE INJ 10 MG in SYRINGE 0 ML IV SCH (05:30)
[2017-10-28 06:23] VITALS: BP 143/74; PULSE 80; TEMP 37.1; O2SAT 93
[2017-10-28] MEDS: FLUTICASONE/SALMETEROL 250/50 (ADVAIR) 14 PUFF/1 INHALER INH SCH (07:43)
[2017-10-28] MEDS: MULTIVITAMIN TAB PO SCH (07:44)
[2017-10-28] MEDS: POLYETHYLENE (MIRALAX) 17 GM PACK PO SCH (07:44)
[2017-10-28] MEDS ORDERED: HYDR-5688 PO (07:50)
--- NOTE | 2017-10-28 07:52 | Discharge Instructions ---
Discharge Instructions Date of Service Oct 28, 2017. Admission Reason for Admission: Lumbar Spinal Stenosis Discharge Discharge Diagnosis / Problem: same Discharge Goals Goal(s): Improve function Activity Recommendations Activity Limitations: as noted below Lifting Limitations: until after follow-up appointment Exercise/Sports Limitations: until after follow-up appointment . Instructions / Follow-Up Instructions / Follow-Up MEDICATIONS: Please take your prescriptions as instructed at your pre-op appointment. SPECIAL CARE: The following information is intended to answer some of the common questions and concerns regarding your surgery. Each patient is an individual and receives individual counselling throughout the course of treatment, from diagnosis to surgery all the way through recovery. What follows is not an exhaustive list, but should be a useful guide to some of the common questions and concerns patients have regarding their surgeries. These are not provided to keep you from calling us; rather, they give you something accurate and concrete to reference as you recover from your procedure. If you need us, we are available to you. As always, if you are not sure about something, call us at [phone]. MEDICAL EMERGENCIES: For these conditions, call 911 or go to your local hospital-based Emergency Department - not [facility] or equivalent. * Paralysis * Severe chest pain or difficulty breathing * Swelling or redness of either leg Spine procedures can be rather complex and though complications are rare, they do occur. In such cases, effective advice regarding emergency situations cannot always be addressed over the telephone. You may be referred to the emergency department for more effective management of your problem. Activity Limitations: It is important to give your body time to heal, so please limit your activities : * In general, don't do anything that moves your spine too much. You should avoid contact sports, twisting or heavy lifting while you recover. * 5-10 pounds is all you should attempt to lift. * You should not plan on driving for approximately 3 weeks and you should avoid traveling more than 30-45 minutes at a time. Longer trips should be broken down with walking breaks spaced appropriately. * Physical therapy is not usually required. * Walking and good posture practices will help you recover and regain your function. * Avoid straining or sudden changes in position. * In general, the goal is to take it easy and recover. Don't cause any new problems. Just relax. Showers: * Do not take a bath, use a Jacuzzi or hot tub or otherwise submerge your incision. * It is usually safe to take a shower 4-5 days after your surgery. * Your incision does not require any special creams or ointments. * Simply clean it with soap and water, dry and re-dress with a clean bandage afterwards. Incision: * Keep incision clean, dry and protected until your first follow-up appointment. * Some amount of drainage and redness is normal. Any drainage should be fairly clear and not have a foul odor. * If you feel anything is wrong or you have excessive drainage, please call us. * Your stitches and christiano will be removed 10-14 days after your surgery. At the time of your first post-op visit. * Neck surgeries are typically closed with a suture underneath the skin. The steri-strips over the incision should be maintained until we see you in the office. Bracing: * You may be provided with a back or neck brace to encourage good posture and prevent injury. It will remind you not to do too much as you heal and will alert others to the fact that you have had a surgery. * Back braces may be removed for showers and when you are resting at home. They must be worn when you are walking around for any period of time or for travel. * For neck surgery, you will likely be provided with two cervical collars. The soft collar ([place] or foam rubber) is worn most commonly throughout the day and while sleeping. The plastic collar (provided at the hospital) is for showering/bathing. * Except while eating, collars should remain in place. More specifically, bracing is provided for a purpose and should be worn. * Please obtain your brace or collars prior to your operation and bring them to the hospital with you on the day of surgery. * You should also bring your collars to your post-op appointment with Dr. Mujica. You should always take good care of your body and practice healthy habits, especially following surgery. You should: * Follow your doctor's treatment plan * Sit and stand properly with good posture (ears over shoulders, shoulders over hips) Don't slouch * Learn to lift correctly * Exercise regularly (low-impact aerobic exercise is especially good, but check with your doctor first) * Generally, be up and walking for 5-10 minutes at a time at least 3-4 times per day from the day you get home * Increasing walking to tolerance until you can walk for 20-30 minutes at a time * Attain and maintain a healthy body weight * Eat healthy foods ( a well-balanced, low-fat diet rich in fruits and vegetables) and get enough calcium * Avoid excessive use of alcohol When to call our office - If you notice any of the following: * Increased pain not relieve by pain medicine * Fevers greater then 100 degrees F, chills or flu symptoms * Increased redness around incision * Drainage from the incision that is not clear * Any foul smelling drainage * Swelling or fluid collection beneath the skin Miscellaneous: * In the hospital, you may be given a walker or cane for support while walking. These are temporary needs and are intended to prevent injuries due to falls. You may discontinue them when you feel strong and steady enough on your feet. * Sleep in a comfortable position. We find that many patients find a lounge chair or recliner with several pillows to be beneficial in the early post-operative period. * The support stockings should be used for 7-10 days and may be discontinued when you are back to walking more and conducting usual household activities. No problem is insignificant. We are here to help you and get you well. Contact us at [phone]. Definitions: Foraminotomy: If part of the disc or a bone spur (osteophyte) is pressing on a nerve as it leaves the vertebra (through an exit called the foramen), a foraminotomy may be done. Otomy means "to make an opening." A foraminotomy is making the opening of the foramen larger, so the nerve can exit without being compressed. Laminotomy: Similar to the foraminotomy, a laminotomy makes a larger opening, this time in your bony plate protecting your spinal canal and spinal cord (the lamina). The lamina may be pressing on your nerve, so the surgeon may make more room for the nerves using a laminotomy. Laminectomy: Sometimes, a laminotomy is not sufficient. The surgeon may need to remove all or part of the lamina. This procedure is called a laminectomy. This can often be done at many levels without any harmful effects. Current Hospital Diet Patient's current hospital diet: Regular Diet Discharge Diet Recommended Diet: Regular Diet Procedures Procedures Performed: L2-L3, L3-L4, L4-L5 Laminectomy Pending Studies Studies pending at discharge: no Medical Emergencies . Who to Call and When: Medical Emergencies: If at any time you feel your situation is an emergency, please call 911 immediately. . Non-Emergent Contact Non-Emergency issues call your: Primary Care Provider Call Non-Emergent contact if: you have any medication questions . "Provider Documentation" section prepared by Nael Mujica. . VTE Core Measure Inpt VTE Proph given/why not?: Treatment not indicated
--- NOTE | 2017-10-28 08:12 | DISCHARGE SUMMARY ---
SUBJECTIVE: He is alert, oriented. No chest pain or shortness of breath, no confusion. Vital signs stable. Lab work stable. Wound clean. ASSESSMENT: Decompression surgery for stenosis, day 2, stable. DISPOSITION: We will get him home later on today. He has medications on his chart. He has a rolling walker prescription. His instructions and precautions given here and in the office. Keep his wound clean and dry. We will see him back in the office in approximately 2 weeks.
[2017-10-28 09:12] VITALS: BP 143/74; PULSE 80; TEMP 37.1; O2SAT 93
== END 2017-10-28 10:21 | disposition home or self-care (01) ==
LOC: C.ACU 10:37 → C.3E 15:36 → ENRESERV 16:07
PROVIDERS: ADMIT Orthopaedic Surgery Orthopaedic Surgery of the Spine; ATTEND Orthopaedic Surgery Orthopaedic Surgery of the Spine
DX: M48.062 Spinal stenosis, lumbar region with neurogenic claudication (principal); J45.909 Unspecified asthma, uncomplicated; Z85.820 Personal history of malignant melanoma of skin; Z85.048 Personal history of other malignant neoplasm of rectum, rectosigmoid junction, and anus; I10 Essential (primary) hypertension; E78.5 Hyperlipidemia, unspecified; M19.90 Unspecified osteoarthritis, unspecified site; Z93.3 Colostomy status

== ENCOUNTER → 2017-12-08 | Day surgery (SDC) | payer OTHER ==
[2017-11-30 09:59] VITALS: BMI 25.0
[~2017-12-08] VITALS: Ht 170.2 cm; Wt 72.7 kg
[~2017-12-08] MED LIST changes: -ALPR-412 PO; -CEFAZOLIN 2000MG IV PUSH 10 ML IV SCH; -LACTATED RINGER'S 1000ML 1,000 ML IV SCH; +LIDOCAINE HCL 2% 2 ML VIAL (20MG/ML) ONE; -MULT-506 PO; -NAPR1CAP12 PO; -NSS 1000ML IV SCH; -POLY335019 PO; +PROPOFOL IV EMULSION 10 MG/ML 20 ML VIAL IV ONE; +SODIUM CHLORIDE 0.9% 500ML 500 ML IV ONE; -VITAMIN B 12 INJ INJ; +VITAMIN B12 INJ
[2017-12-08 11:36] VITALS: Ht 170.2 cm; Wt 72.7 kg
--- NOTE | 2017-12-08 12:08 | Endo History and Physical ---
History & Physical Date of Service: Dec 08, 2017. Chief Complaint: COLON CANCER Referring Physician: DR MCKEON, DR ELVIN EUBANKS History of Present Illness 77 yo CM who presents for colonoscopy via colostomy secondary to history of rectal cancer. Past Surgical History Hx Cardiac Surgery: No Hx Internal Defibrillator: No Hx Pacemaker: No Hx Abdominal Surgery: No Hx of Implantable Prosthesis: No Hx Post-Op Nausea and Vomiting: Yes Hx Cancer Surgery: Yes (COLON RESECTION WITH COLOSTOMY, SKIN CA REMOVAL) Hx Thoracic Surgery: No Hx Orthopedic: Yes (LUMBAR LAMINECTOMY) Hx Urinary Tract Surgery: No Family History None Social History Smoking Status: Former Smoker Hx Substance Use: No Hx Alcohol Use: Yes (2-3 BEER WEEKLY) Allergies Coded Allergies: Brompheniramine (Verified Allergy, Unknown, UNKNOWN, 11/30/17) PER PCP RECORDS Hydrochlorothiazide w/Triamterene (Verified Allergy, Unknown, UNKNOWN REACTION, 10/26/17) PER PCP RECORDS Lisinopril (Verified Allergy, Unknown, UNKNOWN REACTION, 10/26/17) PER PCP RECORDS Olmesartan (Verified Allergy, Unknown, UNKNOWN REACTION, 10/26/17) PER PCP RECORDS Pseudoephedrine (Verified Allergy, Unknown, UNKNOWN REACTION, 10/26/17) PER PCP RECORDS Telmisartan (Verified Allergy, Unknown, UNKNOWN REACTION, 10/26/17) PER PCP RECORDS Current Medications Reported Home Medications Medications Dose Route/Sig Max Daily Dose Days Date Category [Vitamin B12] 1 Dose INJ [id number] 11/30/17 Reported Advair Diskus 250/50 60 Dose (Fluticasone Prop/Salmeterol) 1 Ea Aerp 1 Puff INH QAM 11/30/17 Reported Vital Signs Weight (Kilograms): 72.73 Height (Feet): 5 Height (Inches): 7 Date Time Temp Pulse Resp B/P (MAP) Pulse Ox O2 Delivery O2 Flow Rate FiO2 12/08/17 11:35 36.4 84 18 173/86 (115) 94 Room Air Physical Exam General Appearance: WD/WN, no apparent distress Respiratory/Chest: Auscultation: breath sounds normal Cardiovascular: Heart Auscultation: RRR Abdomen: Bowel Sounds: normal Inspection & Palpation: soft, non-distended, no tenderness, guarding & rebound Assessment and Plan Assessment: 77 yo CM who presents for colonoscopy via colostomy secondary to history of rectal cancer. Plan: Proceed with colonoscopy via colostomy.
--- NOTE | 2017-12-08 12:37 | Discharge Instructions ---
Endoscopy Patient Instructions Date / Procedure(s) Performed Dec 08, 2017. Colonoscopy Allergy Information Coded Allergies: Brompheniramine (Verified Allergy, Unknown, UNKNOWN, 11/30/17) PER PCP RECORDS Hydrochlorothiazide w/Triamterene (Verified Allergy, Unknown, UNKNOWN REACTION, 10/26/17) PER PCP RECORDS Lisinopril (Verified Allergy, Unknown, UNKNOWN REACTION, 10/26/17) PER PCP RECORDS Olmesartan (Verified Allergy, Unknown, UNKNOWN REACTION, 10/26/17) PER PCP RECORDS Pseudoephedrine (Verified Allergy, Unknown, UNKNOWN REACTION, 10/26/17) PER PCP RECORDS Telmisartan (Verified Allergy, Unknown, UNKNOWN REACTION, 10/26/17) PER PCP RECORDS Discharge Date / Findings Dec 08, 2017. Diverticulosis Medication Instructions OK to resume all medications today as prescribed Reported Home Medications Medications Dose Route/Sig Max Daily Dose Days Date Category [Vitamin B12] 1 Dose INJ [id number] 11/30/17 Reported Advair Diskus 250/50 60 Dose (Fluticasone Prop/Salmeterol) 1 Ea Aerp 1 Puff INH QAM 11/30/17 Reported Provider Instructions Activity Restrictions - No exercising or heavy lifting for 24 hours. - Do not drink alcohol the day of the procedure. - Do not drive a car or operate machinery until the day after the procedure. - Do not make any important decisions or sign important papers in 24 hours after the procedure. Following Day: - Return to full activity which may include returning to work/school. Diet Start your diet with liquids and light foods (jello, soup, juice, toast). Then eat your usual diet if not nauseated. Treatment For Common After Affects For mild abdominal pain, bloating, or excessive gas: - Rest - Eat lightly - Lie on right side Follow-Up Information Follow-up with DR MCKEON, DR ELVIN EUBANKS as scheduled Anesthesia Information What You Should Know You have had a procedure that required some medicine to reduce anxiety and discomfort. This treatment is called moderate sedation. After receiving the treatment, you may be sleepy, but you will be able to breathe on your own. The effects of the treatment may last for several hours. Follow these instructions along with Activity/Diet recommendations noted above: * Do NOT do anything where dizziness or clumsiness would be dangerous. * Rest quietly at home today, then you can be up and about tomorrow. * Have a responsible person stay with you the rest of today. * You may have had an I.V. today. If so, you may take the dressing off later today. Recommendations Call your doctor if: * Trouble breathing * Continuous vomiting for more than 24 hours * Temperature above 101 degrees * Severe abdominal pain or bloating * Pain not relieved by pain medicine ordered * There is increased drainage or redness from any incision * A large amount of rectal bleeding greater than 2-3 tablespoons. (If you had a polyp/s removed or have hemorrhoids, a small amount of blood - from the rectum is to be expected.) * You have any unanswered questions or concerns. IN THE EVENT OF A SERIOUS EMERGENCY, GO TO THE NEAREST EMERGENCY ROOM Your discharge instructions were prepared by provider Jimmie Brower. Patient Instructions Signature Page Bill Newby Patient (or Guardian) Signature/Date: I have read and understand the instructions given to me by my caregivers. Caregiver/RN/Doctor Signature/Date: The above-named patient and/or guardian has received patient instructions on this date. + Original Patient Signature Page (only) stays with chart. Please make copy for patient.
--- NOTE | 2017-12-08 12:44 | GI REPORT ---
Procedure Date: 12/08/2017 11:44 AM Procedure: Colonoscopy Indications: High risk colon cancer surveillance: Personal history of rectal cancer Medicines: Monitored Anesthesia Care Complications: No immediate complications. Estimated Blood Loss: Estimated blood loss: none. Procedure: Pre-Anesthesia Assessment: - Prior to the procedure, a History and Physical was performed, and patient medications and allergies were reviewed. The patient's tolerance of previous anesthesia was also reviewed. The risks and benefits of the procedure and the sedation options and risks were discussed with the patient. All questions were answered, and informed consent was obtained. Prior Anticoagulants: The patient has taken no previous anticoagulant or antiplatelet agents. ASA Grade Assessment: III - A patient with severe systemic disease. After reviewing the risks and benefits, the patient was deemed in satisfactory condition to undergo the procedure. After I obtained informed consent, the scope was passed under direct vision. Throughout the procedure, the patient's blood pressure, pulse, and oxygen saturations were monitored continuously. The scope was introduced through the descending colostomy and advanced to the terminal ileum. The colonoscopy was performed without difficulty. The patient tolerated the procedure well. The quality of the bowel preparation was good. Findings: A few small-mouthed diverticula were found in the descending colon. Impression: - Diverticulosis in the descending colon. - No specimens collected. Recommendation: - Resume previous diet. - Continue present medications. - Repeat colonoscopy in 3 years for surveillance. - Return to primary care physician as previously scheduled. Jimmie Brower DO 12/08/2017 12:44:17 PM This report has been signed electronically. Note Initiated On: 12/08/2017 11:44 AM I attest to the content of the Intraoperative Record and orders documented therein, exceptions below
[2017-12-08 13:11] VITALS: BP 167/93; PULSE 81; O2SAT 97
--- NOTE | 2017-12-08 13:21 | Anesthesiology Progress Note ---
Anesthesia Post Op Note Date & Time Dec 08, 2017 at 13:21 Vital Signs Pain Intensity: 0 Vital Signs Past 12 Hours Date Time Temp Pulse Resp B/P (MAP) Pulse Ox O2 Delivery O2 Flow Rate FiO2 12/08/17 13:11 81 18 167/93 (117) 97 Room Air 12/08/17 12:55 81 18 148/88 (108) 96 Room Air 12/08/17 12:40 83 12 144/78 (100) 96 Room Air 12/08/17 11:35 36.4 84 18 173/86 (115) 94 Room Air Notes Mental Status: alert / awake / arousable, participated in evaluation Pt Amnestic to Procedure: Yes Nausea / Vomiting: adequately controlled Pain: adequately controlled Airway Patency, RR, SpO2: stable & adequate BP & HR: stable & adequate Hydration State: stable & adequate Anesthetic Complications: no major complications apparent
== END | disposition home or self-care (01) ==
LOC: C.GI 10:55
PROVIDERS: ATTEND Internal Medicine
DX: Z12.11 Encounter for screening for malignant neoplasm of colon (principal); K57.30 Diverticulosis of large intestine without perforation or abscess without bleeding; Z93.3 Colostomy status; I10 Essential (primary) hypertension; M19.90 Unspecified osteoarthritis, unspecified site; Z85.038 Personal history of other malignant neoplasm of large intestine; Z90.49 Acquired absence of other specified parts of digestive tract; Z85.828 Personal history of other malignant neoplasm of skin; Z87.891 Personal history of nicotine dependence

== ENCOUNTER → 2018-06-14 | Outpatient (CLI) | payer OTHER ==
[~2018-06-14] MED LIST changes: -LIDOCAINE HCL 2% 2 ML VIAL (20MG/ML) ONE; +OPTIRAY 320 IV PRN; -PROPOFOL IV EMULSION 10 MG/ML 20 ML VIAL IV ONE; -SODIUM CHLORIDE 0.9% 500ML 500 ML IV ONE
--- NOTE | 2018-06-14 16:34 | DIAGNOSTIC IMAGING REPORT ---
CT (CHEST) THORAX WITH CT DOSE: 913.49 mGycm HISTORY: Rectal carcinoma RECTAL CA TECHNIQUE: Multiaxial CT images of the chest were performed following the intravenous administration of contrast. A dose lowering technique was utilized adhering to the principles of ALARA. COMPARISON: 06/30/2017 FINDINGS: Lungs are clear. Calcified pleural plaques throughout both hemithoraces are considered stable. Several small mediastinal nodes are stable. No evidence for bulky adenopathy. No focal infiltrate. Atherosclerotic change thoracic aorta considered stable. IMPRESSION: No acute process. Chronic findings as noted. No change from the prior exam. The above report was generated using voice recognition software. It may contain grammatical, syntax or spelling errors. Electronically signed by: Ko Price M.D. 06/14/2018 4:33 PM Dictated Date/Time: 06/14/2018 4:30 PM
--- NOTE | 2018-06-14 16:39 | DIAGNOSTIC IMAGING REPORT ---
ABD/PELVIS IV AND ORAL CONT CT DOSE: HISTORY: Rectal carcinoma RECTAL CA TECHNIQUE: Multiaxial CT images of the abdomen and pelvis were performed following the use of intravenous and oral contrast. A dose lowering technique was utilized adhering to the principles of ALARA. COMPARISON STUDY: 06/30/2017 FINDINGS: Chronic pleural plaques both lung bases. Liver is uniform. Benign lipid poor adenoma left adrenal. This is unchanged. Kidneys negative for hydronephrosis. Nonobstructive bowel pattern. Left-sided anterior ostomy considered patent. No significant abdominal pelvic or inguinal adenopathy. Bladder is midline. No significant free fluid within the pelvic cul-de-sac. Moderate prostatic enlargement unchanged. IMPRESSION: Chronic and postoperative change. No acute process. No change from the prior study. The above report was generated using voice recognition software. It may contain grammatical, syntax or spelling errors. Electronically signed by: Ko Price M.D. 06/14/2018 4:38 PM Dictated Date/Time: 06/14/2018 4:35 PM
== END | disposition home or self-care (01) ==
LOC: C.CTS 15:11
PROVIDERS: ATTEND Internal Medicine Hematology & Oncology
DX: Z85.048 Personal history of other malignant neoplasm of rectum, rectosigmoid junction, and anus (principal); Z98.890 Other specified postprocedural states

== ENCOUNTER → 2018-07-01 | Outpatient (CLI) | payer OTHER ==
[~2018-07-01] MED LIST changes: -OPTIRAY 320 IV PRN
[2018-07-01 17:37] LABS: HEMATOCRIT 35.5 % (42-52); HEMOGLOBIN 11.9 g/dL (14.0-18.0); MEAN CELL VOLUME 91.7 fL (80-100); MEAN CORPUSCULAR HEMOGLOBIN 30.7 pg (25-34); MEAN CORPUSCULAR HGB CONC 33.5 g/dl (32-36); MEAN PLATELET VOLUME 9.8 fL (7.4-10.4); PLATELET COUNT 238 K/uL (130-400); RED CELL DISTRIBUTION WIDTH CV 14.2 % (11.5-14.5); RED CELL DISTRIBUTION WIDTH SD 48.2 fL (36.4-46.3); WHITE BLOOD COUNT 5.02 K/uL (4.8-10.8)
[2018-07-01 18:08] LABS: ALBUMIN 3.7 gm/dl (3.4-5.0); ALKALINE PHOSPHATASE 61 U/L (45-117); ALT/SGPT 22 U/L (12-78); AST/SGOT 26 U/L (15-37); BLOOD UREA NITROGEN 17 mg/dl (7-18); CALCIUM 8.7 mg/dl (8.5-10.1); CARBON DIOXIDE 27 mmol/L (21-32); CHOLESTEROL 199 mg/dl (0-200); CREATININE 0.87 mg/dl (0.60-1.40); GLUCOSE 85 mg/dl (70-99); LDL CHOLESTEROL CALCULATED 109 mg/dl; POTASSIUM 4.3 mmol/L (3.5-5.1); SODIUM 138 mmol/L (136-145); TOTAL PROTEIN 7.1 gm/dl (6.4-8.2)
== END | disposition home or self-care (01) ==
LOC: C.LABBFT 15:20
PROVIDERS: ATTEND Physician Assistant Medical
DX: R53.83 Other fatigue (principal); D51.0 Vitamin B12 deficiency anemia due to intrinsic factor deficiency; J92.0 Pleural plaque with presence of asbestos; G62.9 Polyneuropathy, unspecified; R53.1 Weakness; I10 Essential (primary) hypertension